=== PATIENT | male | born 2000 | race Hispanic/Latino ===

== ENCOUNTER 2022-06-04 13:09 | Inpatient (IN) | payer OTHER ==
[~2022-06-04] VITALS: Ht 165.1 cm; Wt 104.0 kg
[2022-06-04] MEDS ORDERED: IBUPROFEN 600 MG TABLET PO ONE (13:30)
[2022-06-04 13:42] LABS: BASOPHILS % (AUTO) 0.4 % (0.0-5.0); EOSINOPHILS % (AUTO) 1.3 % (0.0-8.0); HEMATOCRIT 35.7 % (42-54); LYMPHOCYTES % (AUTO) 14.2 % (21.0-51.0); MEAN CORPUSCULAR HEMOGLOBIN 27.3 pg (27.0-33.0); MEAN CORPUSCULAR HGB CONC 32.8 g/dL (32.0-36.0); MEAN CORPUSCULAR VOLUME 83.4 fL (79-99); MONOCYTES % (AUTO) 12.7 % (3.0-13.0); PLATELET COUNT (AUTO) 316 K/uL (130-400); RED BLOOD CELL COUNT(AUTO) 4.28 MIL/uL (4.50-6.20); RED CELL DISTRIBUTION WIDTH 12.7 % (11.0-15.5); WHITE BLOOD COUNT (AUTO) 7.2 K/uL (4.8-10.8)
[2022-06-04 13:58] LABS: APPEARANCE,URINE CLEAR (CLEAR); BILIRUBIN,URINE SMALL (NEGATIVE); COLOR,URINE YELLOW (YELLOW); GLUCOSE, URINE (UA) NEGATIVE (NEGATIVE); KETONES,URINE 5 mg/dL (NEGATIVE); LEUKOCYTE ESTERASE ,URINE NEGATIVE (NEGATIVE); NITRATE,URINE NEGATIVE (NEGATIVE); OCCULT BLOOD,URINE MODERATE (NEGATIVE); PH,URINE 5.5 (5.0-8.0); PROTEIN,URINE TRACE mg/dL (NEGATIVE)
[2022-06-04 13:59] LABS: CREATININE 1.1 mg/dL (0.5-1.5)
[2022-06-04 14:04] LABS: ALBUMIN 2.6 g/dL (3.5-5.0); TOTAL PROTEIN, SERUM 8.3 g/dL (6.0-8.3)
[2022-06-04 14:10] LABS: BACTERIA,URINE Rare /HPF (None Seen); MUCUS,URINE Few LPF (None Seen); RBC,URINE 0-1 /HPF (0-1); SQUAMOUS EPITHELIAL CELL,UR Rare /HPF (0-2)
[2022-06-04] MEDS ORDERED: CEFTRIAXONE 1G VIAL ONE (14:25)
[2022-06-04] MEDS ORDERED: ACETAMINOPHEN 500 MG TABLET ONE (14:25)
[2022-06-04] MEDS ORDERED: 0.9%NACL 1000ML 1,000 ML IV ONE (14:30)
[2022-06-04] MEDS ORDERED: ACETAMINOPHEN 500 MG TABLET PO ONE (14:30)
[2022-06-04] MEDS ORDERED: CEFTRIAXONE 1G VIAL IVP ONE (14:30)
[2022-06-04 17:52] LABS: AMPHET/METH SCREEN,URINE NEGATIVE (NEGATIVE); BENZODIAZEPINES SCREEN,URINE NEGATIVE (NEGATIVE); CANNABINOID SCREEN,URINE NEGATIVE (NEGATIVE); COCAINE SCREEN,URINE NEGATIVE (NEGATIVE); PHENCYCLIDINE SCREEN,URINE NEGATIVE (NEGATIVE)
[2022-06-04] MEDS ORDERED: DiphenhydrAMINE HCL 50 MG/ML VIAL IV PRN (19:30)
[2022-06-04] MEDS ORDERED: LACTULOSE 20 GM/30 ML UDCUP PO PRN (19:30)
[2022-06-04] MEDS ORDERED: ONDANSETRON 4MG INJ IV PRN (19:30)
[2022-06-04] MEDS ORDERED: NITROGLYCERIN 0.4 MG SL TAB SL PRN (19:30)
[2022-06-04] MEDS ORDERED: MAG/ALUM/SIMETH 30 ML UDCUP PO PRN (19:30)
[2022-06-04] MEDS ORDERED: DIPHENHYDRAMINE HCL 25 MG CAPSULE PO PRN (19:30)
[2022-06-04] MEDS: 0.9%NACL 1000ML 1,000 ML IV SCH (20:43)
[2022-06-04] MEDS: DOXYCYCLINE 100MG+NS 250ML 250 ML IV SCH (20:43)
[2022-06-04] MEDS: ZOSYN 3.375GM+NS 50ML 50 ML IV SCH (21:00)
[2022-06-04 22:00] VITALS: BP 159/79
[2022-06-05 00:11] VITALS: BP 140/82
[2022-06-05 04:00] VITALS: BP 141/62
[2022-06-05] MEDS: ZOSYN 3.375GM+NS 50ML 50 ML IV SCH ×3 (04:09→21:46)
[2022-06-05] MEDS: 0.9%NACL 1000ML 1,000 ML IV SCH ×3 (04:09→17:54)
[2022-06-05 04:38] LABS: BASOPHILS % (AUTO) 0.3 % (0.0-5.0); EOSINOPHILS % (AUTO) 1.6 % (0.0-8.0); LYMPHOCYTES % (AUTO) 23.2 % (21.0-51.0); MEAN CORPUSCULAR HEMOGLOBIN 27.1 pg (27.0-33.0); MEAN CORPUSCULAR HGB CONC 31.4 g/dL (32.0-36.0); MEAN CORPUSCULAR VOLUME 86.3 fL (79-99); NEUTROPHILS % (AUTO) 62.3 % (40.0-77.0); PLATELET COUNT (AUTO) 293 K/uL (130-400); RED BLOOD CELL COUNT(AUTO) 4.17 MIL/uL (4.50-6.20); RED CELL DISTRIBUTION WIDTH 12.8 % (11.0-15.5); WHITE BLOOD COUNT (AUTO) 6.2 K/uL (4.8-10.8)
[2022-06-05 05:01] LABS: ALBUMIN 2.3 g/dL (3.5-5.0); POTASSIUM 3.8 mmol/L (3.5-5.1); TOTAL PROTEIN, SERUM 7.6 g/dL (6.0-8.3)
[2022-06-05 05:07] LABS: HEPATITIS A IGM ANTIBODY Non-Reactive (Nonreactive); HEPATITIS B CORE IGM ANTIBODY Non-Reactive (Negative); HEPATITIS B SURFACE ANTIGEN Non-Reactive (Nonreactive); HEPATITIS C ANTIBODY Non-Reactive (Nonreactive)
[2022-06-05 08:17] VITALS: BP 134/80
[2022-06-05] MEDS: DOXYCYCLINE 100MG+NS 250ML 250 ML IV SCH ×2 (09:40→21:33)
[2022-06-05 11:50] VITALS: BP 139/67
[2022-06-05 15:58] VITALS: BP 146/79
[2022-06-05 20:08] VITALS: BP 141/87
[2022-06-05] MEDS ORDERED: KCL 20 MEQ ERTAB PO ONE (21:30)
[2022-06-05] MEDS ORDERED: SODIUM CHLORIDE 3% FOR INHALATION 4 ML/AMP VIAL.NEB IH ONE (21:44)
[2022-06-06] VITALS (8 sets, daily range): BP systolic 116–140; BP diastolic 63–84
[2022-06-06] MEDS: 0.9%NACL 1000ML 1,000 ML IV SCH ×4 (00:06→20:10)
[2022-06-06] MEDS ORDERED: SODIUM CHLORIDE 7% INHALATION 4 ML VIAL.NEB IH ONE (00:13)
[2022-06-06] MEDS: ZOSYN 3.375GM+NS 50ML 50 ML IV SCH ×3 (04:16→22:42)
[2022-06-06 05:09] LABS: BASOPHILS % (AUTO) 0.4 % (0.0-5.0); EOSINOPHILS % (AUTO) 2.7 % (0.0-8.0); HEMATOCRIT 36.6 % (42-54); MEAN CORPUSCULAR HGB CONC 31.7 g/dL (32.0-36.0); MEAN CORPUSCULAR VOLUME 85.1 fL (79-99); MONOCYTES % (AUTO) 9.2 % (3.0-13.0); NEUTROPHILS % (AUTO) 56.2 % (40.0-77.0); PLATELET COUNT (AUTO) 329 K/uL (130-400); WHITE BLOOD COUNT (AUTO) 7.4 K/uL (4.8-10.8)
[2022-06-06 05:26] LABS: ALBUMIN 2.5 g/dL (3.5-5.0); CREATININE 0.9 mg/dL (0.5-1.5); CRP QUANTITATIVE 164.6 mg/L (0.00-9.0); POTASSIUM 4.3 mmol/L (3.5-5.1)
[2022-06-06 09:20] LABS: INR 1.05 (0.85-1.15); PROTHROMBIN TIME 11.4 SEC (9.6-11.6)
[2022-06-06 09:21] LABS: PARTIAL THROMBOPLASTIN TIME 30.8 SEC (26.3-35.5)
[2022-06-06] MEDS: DOXYCYCLINE 100MG+NS 250ML 250 ML IV SCH ×2 (09:48→20:10)
[2022-06-06] MEDS ORDERED: 0.9% NACL 250ML 250 ML ONE (20:05)
[2022-06-07 04:32] VITALS: BP 124/64
[2022-06-07 05:12] LABS: BASOPHILS % (AUTO) 0.4 % (0.0-5.0); EOSINOPHILS % (AUTO) 3.2 % (0.0-8.0); HEMATOCRIT 36.4 % (42-54); LYMPHOCYTES % (AUTO) 27.6 % (21.0-51.0); MEAN CORPUSCULAR HEMOGLOBIN 26.6 pg (27.0-33.0); MEAN CORPUSCULAR HGB CONC 31.6 g/dL (32.0-36.0); MEAN CORPUSCULAR VOLUME 84.1 fL (79-99); MONOCYTES % (AUTO) 9.7 % (3.0-13.0); NEUTROPHILS % (AUTO) 58.3 % (40.0-77.0); PLATELET COUNT (AUTO) 328 K/uL (130-400); RED BLOOD CELL COUNT(AUTO) 4.33 MIL/uL (4.50-6.20); RED CELL DISTRIBUTION WIDTH 12.8 % (11.0-15.5); WHITE BLOOD COUNT (AUTO) 7.3 K/uL (4.8-10.8)
[2022-06-07 05:43] LABS: ALBUMIN 2.3 g/dL (3.5-5.0); CREATININE 0.9 mg/dL (0.5-1.5); TOTAL PROTEIN, SERUM 7.6 g/dL (6.0-8.3)
[2022-06-07] MEDS: ZOSYN 3.375GM+NS 50ML 50 ML IV SCH (05:51)
[2022-06-07] MEDS: 0.9%NACL 1000ML 1,000 ML IV SCH (05:51)
[2022-06-07] MEDS ORDERED: SODIUM CHLORIDE 3% FOR INHALATION 4 ML/AMP VIAL.NEB IH ONE (06:30)
[2022-06-07 08:00] VITALS: BP 121/70
[2022-06-07] MEDS: DOXYCYCLINE 100MG+NS 250ML 250 ML IV SCH ×2 (09:24→20:31)
[2022-06-07 10:14] LABS: OPIATES SCREEN URINE Negative ng/mL (Cutoff=300)
[2022-06-07 12:00] VITALS: BP 136/70
[2022-06-07] MEDS: CEFTRIAXONE 1G VIAL IVP SCH (12:46)
[2022-06-07 16:00] VITALS: BP 129/66
[2022-06-07] MEDS: ACETAMINOPHEN 325 MG TAB PO PRN (16:47)
[2022-06-07] MEDS: FUROSEMIDE 20 MG TABLET PO SCH (16:48)
[2022-06-07 20:00] VITALS: BP 132/69
[2022-06-08] VITALS: BP 114/57
[2022-06-08 04:00] VITALS: BP 118/61
[2022-06-08 04:46] LABS: BASOPHILS % (AUTO) 0.6 % (0.0-5.0); HEMATOCRIT 37.5 % (42-54); LYMPHOCYTES % (AUTO) 22.6 % (21.0-51.0); MEAN CORPUSCULAR HEMOGLOBIN 26.7 pg (27.0-33.0); MEAN CORPUSCULAR HGB CONC 31.7 g/dL (32.0-36.0); MEAN CORPUSCULAR VOLUME 84.1 fL (79-99); MONOCYTES % (AUTO) 7.9 % (3.0-13.0); PLATELET COUNT (AUTO) 392 K/uL (130-400); RED BLOOD CELL COUNT(AUTO) 4.46 MIL/uL (4.50-6.20); WHITE BLOOD COUNT (AUTO) 8.7 K/uL (4.8-10.8)
[2022-06-08 05:20] LABS: ALBUMIN 2.5 g/dL (3.5-5.0); CREATININE 0.9 mg/dL (0.5-1.5); CRP QUANTITATIVE 129.4 mg/L (0.00-9.0); MAGNESIUM 1.7 mg/dL (1.80-2.40); TOTAL PROTEIN, SERUM 8.3 g/dL (6.0-8.3)
[2022-06-08] MEDS: FUROSEMIDE 20 MG TABLET PO SCH ×2 (05:37→16:21)
[2022-06-08 06:08] LABS: ERYTHROCYTE SEDIMENTATION RATE 139 MM/HR (0-15)
[2022-06-08] MEDS ORDERED: SODIUM CHLORIDE 3% FOR INHALATION 4 ML/AMP VIAL.NEB IH ONE (06:23)
[2022-06-08 07:25] VITALS: BP 120/65
[2022-06-08] MEDS: DOXYCYCLINE 100MG+NS 250ML 250 ML IV SCH ×2 (09:09→19:58)
[2022-06-08] MEDS ORDERED: ENOXAPARIN SODIUM 100 MG/1 ML SQ SCH (09:30)
[2022-06-08] MEDS: CEFTRIAXONE 1G VIAL IVP SCH (09:57)
[2022-06-08 11:20] VITALS: BP 133/73
[2022-06-08 15:25] VITALS: BP 128/64
[2022-06-08 20:00] VITALS: BP 114/76
[2022-06-09] VITALS (7 sets, daily range): BP systolic 108–123; BP diastolic 54–82
[2022-06-09] MEDS: FUROSEMIDE 20 MG TABLET PO SCH ×3 (00:22→23:43)
[2022-06-09 04:50] LABS: BASOPHILS % (AUTO) 0.6 % (0.0-5.0); EOSINOPHILS % (AUTO) 3.4 % (0.0-8.0); HEMATOCRIT 37.5 % (42-54); MEAN CORPUSCULAR HEMOGLOBIN 26.8 pg (27.0-33.0); MEAN CORPUSCULAR VOLUME 83.9 fL (79-99); MONOCYTES % (AUTO) 10.4 % (3.0-13.0); NEUTROPHILS % (AUTO) 59.6 % (40.0-77.0); PLATELET COUNT (AUTO) 406 K/uL (130-400); RED BLOOD CELL COUNT(AUTO) 4.47 MIL/uL (4.50-6.20); WHITE BLOOD COUNT (AUTO) 8.3 K/uL (4.8-10.8)
[2022-06-09 05:13] LABS: ALBUMIN 2.5 g/dL (3.5-5.0); CREATININE 0.9 mg/dL (0.5-1.5); MAGNESIUM 1.7 mg/dL (1.80-2.40); TOTAL PROTEIN, SERUM 8.1 g/dL (6.0-8.3)
[2022-06-09] MEDS: DOXYCYCLINE 100MG+NS 250ML 250 ML IV SCH ×2 (06:00→19:39)
[2022-06-09] MEDS: CEFTRIAXONE 1G VIAL IVP SCH (10:57)
[2022-06-09] MEDS: PANTOPRAZOLE 40 MG TAB DR PO SCH (10:57)
[2022-06-09] MEDS: MAGNESIUM 2GM PREMIX 50ML 50 ML IV PRN (11:02)
[2022-06-09] MEDS: ACETAMINOPHEN 325 MG TAB PO PRN (19:41)
[2022-06-10 04:22] LABS: BASOPHILS % (AUTO) 0.4 % (0.0-5.0); EOSINOPHILS % (AUTO) 3.9 % (0.0-8.0); HEMATOCRIT 36.6 % (42-54); LYMPHOCYTES % (AUTO) 23.8 % (21.0-51.0); MEAN CORPUSCULAR HEMOGLOBIN 26.7 pg (27.0-33.0); MEAN CORPUSCULAR VOLUME 83.6 fL (79-99); MONOCYTES % (AUTO) 10.2 % (3.0-13.0); NEUTROPHILS % (AUTO) 60.4 % (40.0-77.0); PLATELET COUNT (AUTO) 426 K/uL (130-400); RED BLOOD CELL COUNT(AUTO) 4.38 MIL/uL (4.50-6.20); RED CELL DISTRIBUTION WIDTH 12.9 % (11.0-15.5)
[2022-06-10 04:44] LABS: ALBUMIN 2.6 g/dL (3.5-5.0); MAGNESIUM 1.8 mg/dL (1.80-2.40); TOTAL PROTEIN, SERUM 8.3 g/dL (6.0-8.3)
[2022-06-10 04:52] VITALS: BP 118/78
[2022-06-10] MEDS: ACETAMINOPHEN 325 MG TAB PO PRN ×2 (05:04→20:24)
[2022-06-10] MEDS: DOXYCYCLINE 100MG+NS 250ML 250 ML IV SCH ×2 (05:50→18:36)
[2022-06-10 08:00] VITALS: BP 146/70
[2022-06-10] MEDS: CEFTRIAXONE 1G VIAL IVP SCH (10:27)
[2022-06-10] MEDS: MAGNESIUM 2GM PREMIX 50ML 50 ML IV PRN (10:28)
[2022-06-10] MEDS: PANTOPRAZOLE 40 MG TAB DR PO SCH (10:28)
[2022-06-10 12:00] VITALS: BP 136/70
[2022-06-10] MEDS: FUROSEMIDE 20 MG TABLET PO SCH ×2 (13:01→20:23)
[2022-06-10] MEDS: ZOSYN 3.375GM +NS 50ML IV SCH ×2 (15:48→22:20)
[2022-06-10 16:00] VITALS: BP 125/71
[2022-06-10 20:14] VITALS: BP 124/66
[2022-06-10 23:10] VITALS: BP 121/69
[2022-06-11 03:18] VITALS: BP 125/79
[2022-06-11] MEDS: DOXYCYCLINE 100MG+NS 250ML 250 ML IV SCH ×2 (05:34→17:37)
[2022-06-11] MEDS: ZOSYN 3.375GM +NS 50ML IV SCH ×3 (05:34→20:55)
[2022-06-11 08:23] VITALS: BP 115/69
[2022-06-11] MEDS: FUROSEMIDE 20 MG TABLET PO SCH ×2 (09:02→20:54)
[2022-06-11] MEDS: PANTOPRAZOLE 40 MG TAB DR PO SCH (09:03)
[2022-06-11 11:17] VITALS: BP 124/76
[2022-06-11] MEDS: GUAIFENESIN-DM 200/20 MG 10 ML PO PRN (11:56)
[2022-06-11 16:30] VITALS: BP 126/80
[2022-06-11 20:00] VITALS: BP 142/79
[2022-06-11] MEDS: ACETAMINOPHEN 325 MG TAB PO PRN (20:54)
[2022-06-12 00:37] VITALS: BP 126/79
[2022-06-12 03:56] VITALS: BP 117/64
[2022-06-12] MEDS: ZOSYN 3.375GM +NS 50ML IV SCH ×3 (06:04→22:10)
[2022-06-12] MEDS: DOXYCYCLINE 100MG+NS 250ML 250 ML IV SCH ×2 (06:04→20:01)
[2022-06-12] MEDS: FUROSEMIDE 20 MG TABLET PO SCH ×2 (07:24→20:01)
[2022-06-12] MEDS: PANTOPRAZOLE 40 MG TAB DR PO SCH (07:24)
[2022-06-12 07:30] VITALS: BP 113/76
[2022-06-12 11:00] VITALS: BP 115/79
[2022-06-12 16:00] VITALS: BP 110/69
[2022-06-12 16:10] LABS: ROCKY MT SPOTTED FEVER IGG <1:64 (Neg:<1:64); ROCKY MT SPOTTED FEVER IGM <1:64 (Neg:<1:64); TYPHUS FEVER AB IGG <1:64 (Neg:<1:64); TYPHUS FEVER AB IGM <1:64 (Neg:<1:64)
[2022-06-12 20:00] VITALS: BP 125/68
[2022-06-12] MEDS: GUAIFENESIN-DM 200/20 MG 10 ML PO PRN (22:11)
[2022-06-12] MEDS: ACETAMINOPHEN 325 MG TAB PO PRN (22:11)
[2022-06-13 04:00] VITALS: BP 120/74
[2022-06-13] MEDS: ZOSYN 3.375GM +NS 50ML IV SCH ×3 (05:34→22:12)
[2022-06-13] MEDS ORDERED: 0.9% NACL 250ML 250 ML ONE (07:08)
[2022-06-13] MEDS: DOXYCYCLINE 100MG+NS 250ML 250 ML IV SCH ×2 (07:20→19:43)
[2022-06-13] MEDS: FUROSEMIDE 20 MG TABLET PO SCH ×2 (07:20→19:44)
[2022-06-13] MEDS: PANTOPRAZOLE 40 MG TAB DR PO SCH (07:20)
[2022-06-13 08:01] VITALS: BP 115/69
[2022-06-13 09:17] LABS: HEMATOCRIT 39.4 % (42-54); MEAN CORPUSCULAR HGB CONC 32.2 g/dL (32.0-36.0); MEAN CORPUSCULAR VOLUME 83.7 fL (79-99); RED BLOOD CELL COUNT(AUTO) 4.71 MIL/uL (4.50-6.20); RED CELL DISTRIBUTION WIDTH 13.1 % (11.0-15.5)
[2022-06-13 09:38] LABS: ALBUMIN 2.8 g/dL (3.5-5.0); POTASSIUM 3.7 mmol/L (3.5-5.1); TOTAL PROTEIN, SERUM 8.9 g/dL (6.0-8.3)
[2022-06-13 11:50] VITALS: BP 123/66
[2022-06-13] MEDS ORDERED: DIATR MEGLU/DIATRIZOATE SODIUM 30 ML BOTTLE ONE (13:14)
[2022-06-13 15:56] VITALS: BP 135/91
[2022-06-13] MEDS ORDERED: IOHEXOL 350 MG/ML 100ML INFUS..BTL IV ONE (16:50)
[2022-06-13 20:00] VITALS: BP 127/73
[2022-06-14] VITALS: BP 126/69
[2022-06-14 04:00] VITALS: BP 126/76
[2022-06-14] MEDS: ZOSYN 3.375GM +NS 50ML IV SCH ×2 (05:34→15:11)
[2022-06-14 07:30] VITALS: BP 132/97
[2022-06-14] MEDS: DOXYCYCLINE 100MG+NS 250ML 250 ML IV SCH ×2 (09:12→22:26)
[2022-06-14] MEDS: PANTOPRAZOLE 40 MG TAB DR PO SCH (09:12)
[2022-06-14] MEDS: FUROSEMIDE 20 MG TABLET PO SCH ×2 (09:12→22:26)
[2022-06-14 11:00] VITALS: BP 129/76
[2022-06-14 16:00] VITALS: BP 128/75
[2022-06-14 19:00] VITALS: BP 119/68
[2022-06-14] MEDS ORDERED: 0.9% NACL 250ML 250 ML ONE (22:22)
[2022-06-15] VITALS: BP 133/80
[2022-06-15] MEDS: ZOSYN 3.375GM +NS 50ML IV SCH ×4 (00:32→23:33)
[2022-06-15 04:00] VITALS: BP 123/75
[2022-06-15 05:18] LABS: HEMATOCRIT 34.2 % (42-54); MEAN CORPUSCULAR HEMOGLOBIN 26.5 pg (27.0-33.0); MEAN CORPUSCULAR HGB CONC 31.9 g/dL (32.0-36.0); MEAN CORPUSCULAR VOLUME 83.2 fL (79-99); RED BLOOD CELL COUNT(AUTO) 4.11 MIL/uL (4.50-6.20); RED CELL DISTRIBUTION WIDTH 13.1 % (11.0-15.5); WHITE BLOOD COUNT (AUTO) 8.5 K/uL (4.8-10.8)
[2022-06-15 05:32] LABS: ALBUMIN 2.4 g/dL (3.5-5.0); POTASSIUM 3.7 mmol/L (3.5-5.1); TOTAL PROTEIN, SERUM 7.7 g/dL (6.0-8.3)
[2022-06-15 08:01] VITALS: BP 106/65
[2022-06-15] MEDS: FUROSEMIDE 20 MG TABLET PO SCH ×2 (10:05→20:37)
[2022-06-15] MEDS: PANTOPRAZOLE 40 MG TAB DR PO SCH (10:07)
[2022-06-15] MEDS: DOXYCYCLINE 100MG+NS 250ML 250 ML IV SCH ×2 (10:07→20:37)
[2022-06-15 11:50] VITALS: BP 101/68
[2022-06-15 15:47] VITALS: BP 110/62
[2022-06-15 20:00] VITALS: BP 122/76
[2022-06-15] MEDS ORDERED: 0.9% NACL 250ML 250 ML ONE (20:30)
[2022-06-16] VITALS (20 sets, daily range): BP systolic 112–145; BP diastolic 61–86
[2022-06-16] MEDS: ZOSYN 3.375GM +NS 50ML IV SCH ×2 (05:27→14:27)
[2022-06-16] MEDS: PANTOPRAZOLE 40 MG TAB DR PO SCH (09:00)
[2022-06-16] MEDS: FUROSEMIDE 20 MG TABLET PO SCH ×2 (09:00→21:56)
[2022-06-16] MEDS: DOXYCYCLINE 100MG+NS 250ML 250 ML IV SCH ×2 (09:40→21:48)
[2022-06-16] MEDS ORDERED: SUCCINYLCHOLINE CHLORIDE 20 MG/ML 10 ML VIAL ONE (12:52)
[2022-06-16] MEDS ORDERED: SUCCINYLCHOLINE 200MG/10ML SYR ONE (12:52)
[2022-06-16] MEDS ORDERED: NEOSTIGMINE 5MG/5ML SYR IV ONE (12:57)
[2022-06-16] MEDS ORDERED: PROPOFOL 10 MG/ML 20ML VIAL IV ONE (12:57)
[2022-06-16] MEDS ORDERED: DEXAMETHASONE SOD PHOSPHATE 10MG/ML 1ML VIAL ONE (12:57)
[2022-06-16] MEDS ORDERED: GLYCOPYRROLATE 1 MG/5 ML SYRINGE ONE (12:57)
[2022-06-16] MEDS ORDERED: ONDANSETRON 4MG INJ ONE (12:57)
[2022-06-16] MEDS ORDERED: MIDAZOLAM HCL 1 MG/ML 2ML VIAL ONE (12:57)
[2022-06-16] MEDS ORDERED: FENTANYL CITRATE PF 50 MCG/1 ML 2ML VIAL ONE (12:58)
[2022-06-16] MEDS ORDERED: ROCURONIUM 10MG/1ML SYR 10 MG/ML ML ONE (12:58)
[2022-06-16] MEDS ORDERED: LIDOCAINE HCL 1% 20 ML VIAL ONE (13:32)
[2022-06-16] MEDS ORDERED: MEPERIDINE-PF 25 MG/ML SYG ONE (14:04)
[2022-06-16 16:15] LABS: APPEARANCE BODY FLUID CLOUDY (CLEAR); COLOR,BODY FLUID PINK (LT YELLOW); SPECIMENTYPE,BODY FLUID WASHINGS
[2022-06-16 16:16] LABS: BODY FLUID RBC 2100 /cu. mm.; BODY FLUID WBC 5 /cu. mm.; TOTAL VOLUME,BODY FLUID 8 mL
[2022-06-16 16:17] LABS: APPEARANCE BODY FLUID CLEAR (CLEAR); COLOR,BODY FLUID COLORLESS (LT YELLOW); SPECIMENTYPE,BODY FLUID WASHINGS
[2022-06-16 16:18] LABS: BODY FLUID RBC 46 /cu. mm.; BODY FLUID WBC 21 /cu. mm.; TOTAL VOLUME,BODY FLUID 8 mL
[2022-06-16 16:27] LABS: BF EOSINOPHIL 4 %; BF LYMPHOCYTE 46 %
[2022-06-16 16:29] LABS: BF LYMPHOCYTE 10 %
[2022-06-16] MEDS ORDERED: 0.9% NACL 250ML 250 ML ONE (21:44)
[2022-06-17] VITALS (7 sets, daily range): BP systolic 117–145; BP diastolic 58–82
[2022-06-17] MEDS: ZOSYN 3.375GM +NS 50ML IV SCH ×3 (00:38→16:32)
[2022-06-17] MEDS: PANTOPRAZOLE 40 MG TAB DR PO SCH (08:31)
[2022-06-17] MEDS: FUROSEMIDE 20 MG TABLET PO SCH ×2 (08:33→22:09)
[2022-06-17] MEDS: DOXYCYCLINE 100MG+NS 250ML 250 ML IV SCH ×2 (09:32→22:09)
[2022-06-17] MEDS ORDERED: 0.9% NACL 250ML 250 ML ONE (21:44)
[2022-06-18] MEDS: ZOSYN 3.375GM +NS 50ML IV SCH ×2 (00:32→08:25)
[2022-06-18 04:10] VITALS: BP 144/80
[2022-06-18 06:45] VITALS: BP 121/79
[2022-06-18] MEDS: DOXYCYCLINE 100MG+NS 250ML 250 ML IV SCH (08:24)
[2022-06-18] MEDS: PANTOPRAZOLE 40 MG TAB DR PO SCH (08:25)
[2022-06-18] MEDS: FUROSEMIDE 20 MG TABLET PO SCH (08:26)
[2022-06-18] MEDS ORDERED: FAMOTIDINE 20MG TAB PO SCH (09:00)
[2022-06-18 09:20] LABS: HEMATOCRIT 37.5 % (42-54); MEAN CORPUSCULAR HEMOGLOBIN 26.3 pg (27.0-33.0); MEAN CORPUSCULAR HGB CONC 31.5 g/dL (32.0-36.0); MEAN CORPUSCULAR VOLUME 83.7 fL (79-99); RED BLOOD CELL COUNT(AUTO) 4.48 MIL/uL (4.50-6.20); RED CELL DISTRIBUTION WIDTH 13.1 % (11.0-15.5); WHITE BLOOD COUNT (AUTO) 10.1 K/uL (4.8-10.8)
[2022-06-18 09:54] LABS: ALBUMIN 2.6 g/dL (3.5-5.0); POTASSIUM 3.3 mmol/L (3.5-5.1); TOTAL PROTEIN, SERUM 8.1 g/dL (6.0-8.3)
[2022-06-18 12:00] VITALS: BP 130/76
== END 2022-06-18 15:10 | disposition home or self-care (01) | DRG 871 ==
LOC: EDH 13:09 → EDHIP 13:10 → 3CH 20:36 → 4CH 06-06 10:34
PROVIDERS: ADMIT Internal Medicine; ATTEND Internal Medicine
PROC: 0B9D8ZX Drainage of Right Middle Lung Lobe, Via Natural or Artificial Opening Endoscopic, Diagnostic (ICD-10-PCS; principal; 2022-06-16)
DX: A41.9 Sepsis, unspecified organism (principal); J18.9 Pneumonia, unspecified organism; J86.9 Pyothorax without fistula; E87.1 Hypo-osmolality and hyponatremia; E46 Unspecified protein-calorie malnutrition; J91.8 Pleural effusion in other conditions classified elsewhere; D64.9 Anemia, unspecified; E66.9 Obesity, unspecified; F14.10 Cocaine abuse, uncomplicated; Z68.38 Body mass index [BMI] 38.0-38.9, adult
CPT/HCPCS: 31624; 36415; 71045; 71046; 71250; 71260; 74177; 76604; 80053; 80074; 80305; 81001; 82728; 83605; 83735; 84145; 85025; 85027; 85610; 85651; 85730; 86140; 86480; 86701; 86757; 87040; 87071; 87101; 87116; 87205; 87206; 87390; 87449; 87536; 87556; 87635; 87804; 87880; 89051; 94640; C9803; G0378; J0330; J0696; J1100; J1650; J2175; J2250; J2405; J2543; J2704; J2710; J3010; J3475; J3490; J7050; Q9963; Q9967